=== PATIENT | male | born 1970 | race Caucasian/White ===

== ENCOUNTER 2020-09-22 23:52 | Emergency (ER) | payer BC ==
[2020-09-23 00:33] LABS: Hemoglobin 15.2 g/dL (14.0-18.0); Mean Corpuscular HGB CONC 27.2 g/dL (32.0-36.0); Mean Corpuscular Hemoglobin 25.3 pg (27.0-31.0); Mean Corpuscular Volume 92.9 fL (78.0-98.0); Mean Platelet Volume 6.7 fL (7.4-10.4); Platelet Count 311 thou/uL (130-400); RBC Distribution Width 12.2 % (11.5-14.5); White Blood Cell (WBC) Count 14.7 thou/uL (4.8-10.8)
[2020-09-23 00:34] LABS: Actual Bicarbonate (HCO3a) 18.3 mEq/L (22-28); Analyzer IN Cardio ER; Base Excess (BEa) -2.3 mEq/L (-2.0 to +3.0); Carboxyhemoglobin (COHb) 3.1 gm% (0.0-3.0); Hemoglobin (Hb) 16.8 g/dL (14.0-18.0); O2 Tension (PaO2), arterial 160.5 mmHg (80.0-100.0); Potassium - ABG Lab 4.16 mmol/L (3.70-5.30); pH, Arterial 7.51 (7.35-7.45)
[2020-09-23 00:41] LABS: CO2 Tension 23.4 mmHg (35.0-45.0); Puncture Site RRA
[2020-09-23 00:53] LABS: ALT (SGPT) 78 U/L (8-55); AST (SGOT) 46 U/L (5-34); Alkaline Phosphatase 93 U/L (40-110); Anion Gap 21 mmol/L (10-20); BUN (Urea Nitrogen) 14 mg/dL (8.9-20.6); Band 2 % (5-11); Bilirubin, Total 0.4 mg/dL (0.2-1.2); Calc. Creatinine Clearance 0 mL/min (70-130); Carbon Dioxide 16 mmol/L (22-29); Chloride 106 mmol/L (98-107); Globulin 3.6 g/dL (2.4-3.5); Glucose 115 mg/dL (70-105); Lymphocytes 7 % (21-51); MDiff Complete? YES; Monocytes 3 % (0-10); Neutrophil 87 % (42-75); Platelet Morphology Comment Appears Adequate; Potassium 4.5 mmol/L (3.5-5.1); Protein, Total 8.6 g/dL (6.0-8.3); RBC Morphology Normal; Reactive Lymphocytes 1 % (0-10); Sodium 138 mmol/L (136-145)
[2020-09-23 01:25] LABS: SARS-CoV-2 NAA Rapid Test Not Detected (NotDetected)
== END 2020-09-23 01:50 | disposition home or self-care (01) ==
LOC: ERS 23:52
DX: F10.129 Alcohol abuse with intoxication, unspecified (principal); R06.00 Dyspnea, unspecified; Z20.822 Contact with and (suspected) exposure to COVID-19; Y90.6 Blood alcohol level of 120-199 mg/100 ml
CPT/HCPCS: 0240U; 36600; 71045; 80053; 80307; 82805; 83880; 84484; 85025; 93005

== ENCOUNTER 2020-09-24 12:50 | Observation (INO) | payer BC ==
[2020-09-24 15:15] LABS: #Eosinphils 0.1 thou/uL (0.0-0.7); #Lymphocytes 2.2 thou/uL (1.20-3.40); #Monocytes 0.5 thou/uL (0.11-0.59); #Neutrophils 9.2 thou/uL (1.40-6.50); %Basophils 0.4 % (0.0-1.0); %Lymphocytes 17.9 % (21.0-51.0); %Monocytes 4.3 % (0.0-10.0); %Neutrophils 76.5 % (42.0-75.0); INR-International Normal Ratio 0.9; Mean Corpuscular HGB CONC 34.1 g/dL (32.0-36.0); Mean Corpuscular Hemoglobin 32.3 pg (27.0-31.0); Mean Corpuscular Volume 94.9 fL (78.0-98.0); Mean Platelet Volume 6.6 fL (7.4-10.4); Platelet Count 265 thou/uL (130-400); Prothrombin Time 12.5 sec (12.0-14.7); RBC Distribution Width 11.9 % (11.5-14.5); Red Blood Cell (RBC) Count 4.64 mill/uL (4.70-6.10)
[2020-09-24 15:27] LABS: Anion Gap 11 mmol/L (10-20); BUN (Urea Nitrogen) 19 mg/dL (8.9-20.6); Calc. Creatinine Clearance 0 mL/min (70-130); Calcium 9.3 mg/dL (7.8-10.44); Carbon Dioxide 26 mmol/L (22-29); Chloride 107 mmol/L (98-107); Glucose 102 mg/dL (70-105); Lipase 31 U/L (8-78); Potassium 4.4 mmol/L (3.5-5.1); Sodium 140 mmol/L (136-145)
[2020-09-24] MEDS ORDERED: Acetaminophen 325 MG TAB PO PRN (17:35)
[2020-09-24] MEDS ORDERED: Ondansetron PF 4 MG/2 ML Vial IVP PRN (17:35)
[2020-09-24 18:35] VITALS: BMI 31.3
[2020-09-24 19:08] LABS: Troponin I Less than 0.010 ng/mL (< 0.028)
[2020-09-24] MEDS: Sodium Chloride 0.9% 1,000 ML IV SCH (19:56)
[2020-09-24] MEDS ORDERED: Albuterol 200 PUFF (6.7GM INHALER) INH PRN (20:42)
[2020-09-24] MEDS ORDERED: Ezetimibe 10 MG TAB PO SCH (21:00)
[2020-09-24] MEDS ORDERED: Melatonin 3 MG TAB PO SCH (21:00)
[2020-09-24] MEDS ORDERED: Cholecalciferol 1,000 UNITS (25 MCG) TAB PO SCH (21:00)
[2020-09-24] MEDS ORDERED: Mometasone 200 MCG/Formoterol 5 MCG 120 PUFF INHALER INH SCH (21:00)
[2020-09-24 21:27] LABS: Troponin I Less than 0.010 ng/mL (< 0.028)
[2020-09-24] MEDS: Fish Oil 1,000 MG CAP PO SCH (21:29)
[2020-09-25 05:23] LABS: #Basophils 0.1 thou/uL (0.0-0.2); #Eosinphils 0.1 thou/uL (0.0-0.7); #Lymphocytes 2.1 thou/uL (1.20-3.40); #Monocytes 0.5 thou/uL (0.11-0.59); #Neutrophils 4.5 thou/uL (1.40-6.50); %Basophils 0.7 % (0.0-1.0); %Eosinophils 1.4 % (0.0-10.0); %Monocytes 6.4 % (0.0-10.0); %Neutrophils 62.6 % (42.0-75.0); Hemoglobin 14.4 g/dL (14.0-18.0); Mean Corpuscular HGB CONC 33.8 g/dL (32.0-36.0); Mean Corpuscular Hemoglobin 31.9 pg (27.0-31.0); Mean Corpuscular Volume 94.3 fL (78.0-98.0); Mean Platelet Volume 6.5 fL (7.4-10.4); Platelet Count 239 thou/uL (130-400); RBC Distribution Width 11.8 % (11.5-14.5); Red Blood Cell (RBC) Count 4.51 mill/uL (4.70-6.10); White Blood Cell (WBC) Count 7.2 thou/uL (4.8-10.8)
[2020-09-25 05:29] LABS: Hemoglobin A1c 5.2 % (4.0-6.0)
[2020-09-25 05:53] LABS: ALT (SGPT) 64 U/L (8-55); AST (SGOT) 33 U/L (5-34); Albumin 3.8 g/dL (3.5-5.0); Alkaline Phosphatase 69 U/L (40-110); Anion Gap 12 mmol/L (10-20); BUN (Urea Nitrogen) 19 mg/dL (8.9-20.6); Bilirubin, Total 0.7 mg/dL (0.2-1.2); Calc. Creatinine Clearance 129 mL/min (70-130); Calcium 8.7 mg/dL (7.8-10.44); Carbon Dioxide 24 mmol/L (22-29); Cardiac Risk 4.2 (Less than 4.5); Chloride 106 mmol/L (98-107); Cholesterol 156 mg/dl (< 200 Desired); Globulin 2.5 g/dL (2.4-3.5); Glucose 92 mg/dL (70-105); HDL Cholesterol 37 mg/dL (>60 Neg Risk); LDL Cholesterol, Calculated 76 mg/dL; Potassium 4.2 mmol/L (3.5-5.1); Protein, Total 6.3 g/dL (6.0-8.3); Sodium 138 mmol/L (136-145); Triglycerides 216 mg/dL (Less than 150)
[2020-09-25] MEDS ORDERED: Mometasone 200 MCG/Formoterol 5 MCG 120 PUFF INHALER INH SCH (06:30)
[2020-09-25] MEDS ORDERED: Aspirin 325 MG TAB PO SCH (08:00)
[2020-09-25] MEDS ORDERED: Sodium Chloride 0.9% 1,000 ML IV SCH ×2 (08:45→13:45)
[2020-09-25] MEDS ORDERED: Enoxaparin Sodium 40 MG/0.4 ML SYRINGE SC SCH (09:00)
[2020-09-25] MEDS ORDERED: Pitavastatin Calcium 2 MG TAB PO SCH (09:00)
[2020-09-25] MEDS ORDERED: Communication Order-Pharmacy FS SCH (09:00)
[2020-09-25] MEDS ORDERED: Atorvastatin Calcium 10 MG TAB PO SCH (09:00)
[2020-09-25] MEDS: Fish Oil 1,000 MG CAP PO SCH (09:15)
[2020-09-25] MEDS: Sodium Chloride 0.9% 1,000 ML IV SCH (09:17)
[2020-09-25] MEDS ORDERED: Losartan 25 MG TAB PO SCH (10:00)
[2020-09-25] MEDS ORDERED: Nebivolol HCl 5 MG TAB PO SCH (10:00)
[2020-09-25 11:58] VITALS: TEMP 97.4
[2020-09-25] MEDS ORDERED: Midazolam HCl 2 mg/2 ml Vial ONE (12:05)
[2020-09-25] MEDS ORDERED: Fentanyl 100 MCG/2 ML VIAL ONE (12:05)
[2020-09-25] MEDS ORDERED: Adenosine 6 MG/2 ML VIAL ONE (12:05)
[2020-09-25] MEDS ORDERED: Heparin 10,000 UNITS/ 10 ML VIAL ONE (12:05)
[2020-09-25] MEDS ORDERED: Nitroglycerin 100MG/250ML BOT 0 ML ONE (12:06)
[2020-09-25] MEDS ORDERED: Nitroglycerin 0.4 MG TAB (25 Tab Bottle) SL PRN (13:40)
[2020-09-25] MEDS ORDERED: Sodium Chloride 0.9% 200 ML IV PRN (13:40)
[2020-09-25] MEDS ORDERED: Acetaminophen/Codeine 30-300mg Tablet PO PRN ×2 (13:40)
[2020-09-25 16:47] VITALS: BP 144/70
[2020-09-26] MEDS ORDERED: Losartan 25 MG TAB PO SCH (09:00)
[2020-09-26] MEDS ORDERED: Nebivolol HCl 5 MG TAB PO SCH ×2 (09:00)
== END 2020-09-25 17:25 | disposition home or self-care (01) ==
LOC: ERS 12:50 → ERHOLD 16:43 → INTOOBSV 16:43 → 2SW 18:28
PROVIDERS: ADMIT Emergency Medicine; ATTEND Internal Medicine
PROC: 4A023N7 Measurement of Cardiac Sampling and Pressure, Left Heart, Percutaneous Approach (ICD-10-PCS; principal; 2020-09-25)
PROC: B2111ZZ Fluoroscopy of Multiple Coronary Arteries using Low Osmolar Contrast (ICD-10-PCS; 2020-09-25)
DX: R07.89 Other chest pain (principal); R55 Syncope and collapse; R06.02 Shortness of breath; I25.10 Atherosclerotic heart disease of native coronary artery without angina pectoris; I10 Essential (primary) hypertension; E78.5 Hyperlipidemia, unspecified; G89.29 Other chronic pain; M54.9 Dorsalgia, unspecified; Z79.82 Long term (current) use of aspirin; Z79.899 Other long term (current) drug therapy; Z88.2 Allergy status to sulfonamides; Z88.8 Allergy status to other drugs, medicaments and biological substances
CPT/HCPCS: 36415; 71045; 76942; 80048; 80053; 80061; 83036; 83690; 84484; 85025; 85379; 85610; 93005; 93010; 93306; 93458; 93880; 99152; G0378; J0153; J1644; J2250; J3010

== ENCOUNTER 2021-04-25 12:27 | Outpatient (CLI) | payer BC ==
[~2021-04-25 12:27] MED LIST: Iopamidol 370 76% 100 ML VIAL ONE
== END 2021-04-25 12:28 | disposition home or self-care (01) ==
LOC: EEG 12:27
PROVIDERS: ATTEND Psychiatry & Neurology Neurology
DX: R55 Syncope and collapse (principal)
CPT/HCPCS: 70470; 95816; Q9967

== ENCOUNTER 2023-11-21 19:54 | Emergency (ER) | payer BC | END 2023-11-21 23:40 | disposition home or self-care (01) | LOC: ERS 19:54 | DX: S93.402A Sprain of unspecified ligament of left ankle, initial encounter (principal); W22.8XXA Striking against or struck by other objects, initial encounter ==